=== PATIENT | male | born 1990 | race Caucasian/White ===

== ENCOUNTER 2022-08-12 17:40 | Emergency (ER) | payer BC, SELFPAY ==
[2022-08-12 17:56] VITALS: BP 157/89; PULSE 107; RESP 18; TEMP 36.8; O2SAT 97; BMI 43.0
--- NOTE | 2022-08-12 18:13 | EXP.UTC ---
Discharge Plan Disposition Patient Disposition: Home, Self-Care Condition: Good Prescriptions Prescriptions: New ibuprofen [IBU] 800 mg tablet 800 mg PO Q8HP PRN (Reason: Moderate Pain) Qty: 30 0RF ondansetron 4 mg Tablet,Disintegrating 4 mg PO Q8H PRN (Reason: Nausea) Qty: 20 0RF Referrals Follow up/Referrals: Provider,Referral, MD [Primary Care Provider] - See instructions Activity Restrictions/Add. Instructions Additional Instructions/Restrictions: Drink plenty of fluids. Take the medications as directed if needed. Follow up with your regular doctor. GO TO THE ER FOR ANY WORSENING SYMPTOMS Clinical Impressions Clinical Impression: Headache Stand Alone Forms Stand Alone Forms: Work/School Release Discharge ED Provider: Juan José Campbell [facility] General Stated complaint: FRANKLIN Neck Pain Mode of Arrival: Ambulatory Source of Information: Patient and Spouse Limitations: No Limitations Time Seen by Provider: 08/12/22 18:12 Description of Symptoms (Recalled from Triage Doc. by RN): PATIENT C/O HEADACHE AND NAUSEA THAT STARTED TODAY HEENT Symptoms (Recalled from RN notes): Yes Resp Symptoms (Recalled from RN notes): No Skin Symptoms (Recalled from RN notes): No MS Symptoms (Recalled from RN notes): No Functional Status (Recalled from RN notes): WNL History of Present Illness Provider Complaint: He states that since around 1300 today he has had a headache and nausea. Related Data Previous Rx's Medication Instructions Recorded ibuprofen 800 mg tablet (IBU) 800 mg PO Q8HP PRN Moderate Pain 08/12/22 #30 tabs ondansetron 4 mg disintegrating 4 mg PO Q8H PRN Nausea #20 tabs 08/12/22 tablet Allergies Allergy/AdvReac Type Severity Reaction Status Date / Time No Known Allergies Allergy Verified 08/12/22 17:58 Worker's Comp Is this a Worker's Comp case?: No [facility] Disclaimer: The information contained in this section may have been updated after the patient was seen, as this information can be updated by other users. Social History Smoking Status: Never smoker alcohol intake: never current occupational status: employed Travel in the last 8 weeks: None ROS Obtained: Yes All systems reviewed & no additional complaints except as documented Constitutional Constitutional: Denies chills and Denies fever(s) Eyes Eyes: Denies eye discharge ENT Ears, Nose, Mouth, and Throat: Denies dizziness, Denies otalgia and Denies sore throat Cardiovascular Cardiovascular: Denies chest pain Respiratory Respiratory: Denies shortness of breath, Denies chest congestion, Denies cough, Denies stridor and Denies wheezing Gastrointestinal Gastrointestingal: Denies nausea or vomiting Musculoskeletal Musculoskeletal: Reports system reviewed and no additional complaints, except as documented and Denies arthralgias Integumentary/Breasts Skin/Breast: Denies rash Neurologic Neurologic: Reports as per HPI, Denies dizziness and Denies paresthesias Allergic/Immunologic Allergic/Immunologic: Denies wheezing Physical Exam General General appearance: alert and in no apparent distress Head Head exam: atraumatic, normocephalic and normal inspection Eye Eye exam: Present normal appearance, PERRL and EOMI ENT ENT exam: Present normal exam, normal oropharynx, mucous membranes moist, TM's normal bilaterally and normal external ear exam Neck Neck exam: Present normal inspection, full ROM and trachea midline; Absent meningismus or lymphadenopathy Chest Chest inspection: Present normal inspection and symmetric chest wall rise; Absent tenderness Respiratory Respiratory exam: Present normal lung sounds bilaterally; Absent respiratory distress Cardiovascular Cardiovascular exam: Present regular rate and normal rhythm; Absent JVD Abdominal Exam Abdominal exam: Present soft and normal bowel sounds; Absent distention, tenderness or guarding Extremities Exam Extr
[2022-08-12 19:07] VITALS: BP 157/89; PULSE 107; RESP 18; TEMP 36.8; O2SAT 97
== END 2022-08-12 19:35 | disposition home or self-care (01) ==
PROVIDERS: Emergency Provider Nurse Practitioner Family
DX: R51.9 Headache, unspecified (principal); M54.2 Cervicalgia; R11.0 Nausea
CPT/HCPCS: J1885; J2550; 96372; 99212; 99214; G0463

== ENCOUNTER → 2022-09-03 07:07 | Outpatient (CLI) | payer BC, SELFPAY | PROVIDERS: Visit Provider Nurse Practitioner Family | DX: I10 Essential (primary) hypertension (principal); R73.03 Prediabetes; R53.83 Other fatigue; E66.01 Morbid (severe) obesity due to excess calories | CPT/HCPCS: 80053; 80061; 83036; 84402; 84403; 84443; 85025; 85651 ==

== ENCOUNTER → 2022-09-25 14:31 | Outpatient (CLI) | payer BC, SELFPAY ==
--- NOTE | 2022-10-21 13:30 | PC.NURSE ---
Spoke with the today and she states they are eaitng for his machine to be delivered. gave the ok for a trial of auto-pap
== END ==
PROVIDERS: PCP Nurse Practitioner Family; Visit Provider Nurse Practitioner Family
DX: G47.33 Obstructive sleep apnea (adult) (pediatric) (principal); R53.83 Other fatigue; R40.0 Somnolence; R06.83 Snoring
CPT/HCPCS: G0399

== ENCOUNTER → 2023-04-02 23:17 | Outpatient (CLI) | payer BC, SELFPAY ==
[2023-04-03 08:38] LABS: Testosterone,Total 283 ng/dL (264-916)
== END ==
PROVIDERS: PCP Family Medicine; Visit Provider Nurse Practitioner Family
DX: R79.89 Other specified abnormal findings of blood chemistry (principal)
CPT/HCPCS: 84403

== ENCOUNTER 2023-06-28 14:14 | Emergency (ER) | payer BC, SELFPAY ==
[2023-06-28] VITALS (7 sets, daily range): BP systolic 107–141; BP diastolic 54–84; PULSE 77–112; RESP 18–20; TEMP 37.1; O2SAT 95–99; BMI 45.6
--- NOTE | 2023-06-28 14:13 | ECG_ITS ---
APPROVED REPORT Exam: Resting ECG HR:108 bpm ECG Measurements Heart Rate 108 AXES MA 153 P -1 QRSd 93 QRS 22 QT 286 T 18 QTc 349 Conclusion SINUS TACHYCARDIA INDETERMINATE AXIS INCOMPLETE RIGHT BUNDLE BRANCH BLOCK [90+ ms QRS DURATION, TERMINAL R IN V1/V2, 40+ ms S IN I/aVL/V4/V5/V6] ABNORMAL RHYTHM ECG UNCONFIRMED REPORT Electronically signed by : Warner Santos MD 07/02/2023 14:50:25
--- NOTE | 2023-06-28 14:15 | XR_ITS ---
FINAL REPORT CLINICAL HISTORY: Chest pain acute, today FINDINGS: 2 views of the chest were obtained . The heart is normal in size. The mediastinum is within normal limits. The lungs are clear. There is no pneumothorax. Osseous structures are unremarkable. IMPRESSION: No acute cardiopulmonary process. Reviewed, Interpreted and Dictated by Karel Swift MD Transcribed by Madai Ibarra Authenticated and [facility]
[2023-06-28] MEDS: LACTATED RINGERS 1000ML 1,000 ML 999 ML IV (14:21)
[2023-06-28] MEDS: KETOROLAC 30MG/ML VIAL 15 MG IV (14:22)
[2023-06-28] MEDS: ONDANSETRON 4MG/2ML VIAL 4 MG IV (14:22)
[2023-06-28] MEDS: ACETAMINOPHEN 1,000MG/100ML VIAL 1000 MG IV (14:24)
[2023-06-28 14:26] LABS: Influenza A, PCR Not Detected (NotDetected); Influenza B, PCR Not Detected (NotDetected)
[2023-06-28 14:39] LABS: Alanine Aminotransferase 54 U/L (12-78); Albumin Level 4.5 g/dl (3.5-5.0); Albumin/Globulin Ratio 1.5 (1.1-1.8); Alkaline Phosphatase 40 U/L (38-126); Anion Gap 11.8 mEq/L (5-15); Aspartate Amino Transferase 48 U/L (17-59); Bilirubin,Total 0.8 mg/dl (0.2-1.3); Blood Urea Nitrogen 12 mg/dl (9-20); Calcium 8.5 mg/dl (8.4-10.2); Carbon Dioxide 29 mmol/L (22.0-30.0); Chloride 101 mmol/L (98-107); Creatinine Clearance Estimated 80 mL/min (50-200); Estimated Glomerular Filt Rate 64 ml/min (>60); GFR (African American) 78 ML/MIN (>60); Globulin 3.1 g/dL (1.3-3.2); Glucose 99 mg/dl (74-100); Potassium 3.8 mmoL/L (3.5-5.1); Sodium 138 mmol/L (136-145); Total Protein,Serum 7.6 g/dl (6.3-8.2)
[2023-06-28 14:44] LABS: D-Dimer 0.46 ug/mL (0.0-0.5)
[2023-06-28 14:48] LABS: Basophils % 0.4 % (0.1-2.0); Eosinophils # 0.2 K/mm3 (0.0-0.4); Eosinophils % 2.1 % (0.1-12.0); Hematocrit 51.7 % (42.0-52.0); Hemoglobin 17.3 g/dL (14.1-18.0); Lymphocytes # 0.8 K/mm3 (0.7-4.5); Lymphocytes % 9.5 % (10-50); Mean Corpuscular HGB Conc 33.5 g/dL (31.8-35.4); Mean Corpuscular Volume 89.6 fl (80-94); Monocytes # 0.6 K/mm3 (0.1-1.0); Monocytes % 7.8 % (1.7-9.3); Neutrophils # 6.5 K/mm3 (1.8-7.8); Neutrophils % 80.1 % (37.0-80.0); Platelet Count 180 K/mm3 (142-424); Red Blood Count 5.77 M/mm3 (4.60-6.20); Red Cell Distribution Width 13.3 % (11.5-17.5); White Blood Count 8.2 K/mm3 (4.8-10.8)
[2023-06-28 14:59] LABS: Coronavirus 19, PCR Detected (NotDetected)
--- NOTE | 2023-06-28 15:08 | HMH.EDCP ---
Discharge Plan Disposition Patient Disposition: Home, Self-Care Prescriptions Prescriptions: No Action fexofenadine [Estrella Allergy] 180 mg tablet 180 mg PO DAILY hydrochlorothiazide 12.5 mg capsule See Rx Instructions .ROUTE .COMPLEX Qty: 30 2RF Dose Instruction: TAKE 1 CAPSULE 1 TIME EACH DAY Rx Instructions: TAKE 1 CAPSULE 1 TIME EACH DAY testosterone cypionate [Depo-Testosterone] 200 mg/mL oil 200 mg IM Q2W Qty: 10 1RF Referrals Follow up/Referrals: Lamar Sotelo APRN [Primary Care Provider] - See instructions Activity Restrictions/Add. Instructions Additional Instructions/Restrictions: You were evaluated in the emergency department today. Please follow-up closely with your primary care provider as well as your neurosurgeon. Return to the emergency department for new or worsening symptoms. Clinical Impressions Clinical Impression: COVID-19, Chest pain Instructions Patient Instructions: DI for COVID-19 (Suspected or Confirmed ) Discharge ED Provider: Che Mendosa HPI <Che Mendosa DO - Last Filed: 06/28/23 16:30> General Chief Complaint: Chest Pain Stated Complaint: Chest pain Time Seen by Provider: 06/28/23 14:17 Mode of Arrival: Ambulatory Source of Information: Patient Limitations: No Limitations Description of Symptoms (Recalled from ER Triage Doc. by RN): pt presents to ED c/o convulsions and chest pain that started at arrival. pt states that he woke up and was experiencing nausea and shaking all over. pt reports congestion. History of Present Illness HPI narrative: This patient is a 33-year-old male with a history of obesity, hyperlipidemia, and FIDELINA presenting to the emergency department for evaluation with concern for shaking chills that he describes as convulsions. Patient reports that yesterday he was fine, however he woke up this morning with shaking chills and felt very weak. He states that his body is hurting all over. He notes that his convulsions consisted of all over body shaking. He was completely alert and oriented the entire time. He states he has no history of seizures. he also was very nauseated and having dry heaves, and he also notes that he has been very congested. Given this, he called his mom and his , who came home to check on him. They advised to come to the emergency department, so they drove him in. Upon arrival, the patient states he began to have severe left-sided chest pain that resolved spontaneously after a few seconds. He is not currently having any pain at this time and states that he is currently feeling better. Related Data Home Medications Medication Instructions Recorded Confirmed fexofenadine 180 mg tablet 180 mg PO DAILY 04/01/23 05/18/23 (Estrella Allergy) Previous Rx's Medication Instructions Recorded hydrochlorothiazide 12.5 mg capsule See Rx Instructions .Route 04/01/23 .COMPLEX #30 caps testosterone cypionate 200 mg/mL 200 mg IM Q2W #10 mL 04/01/23 intramuscular oil (Depo-Testosterone) Allergies Allergy/AdvReac Type Severity Reaction Status Date / Time No Known Allergies Allergy Verified 05/18/23 09:18 [facility] <Che Mendosa DO - Last Filed: 06/28/23 16:30> [facility] Disclaimer: The information contained in this section may have been updated after the patient was seen, as this information can be updated by other users. Medical History CSF otorrhea Hypertension Low testosterone Prediabetes Surgical History H/O adenoidectomy History of placement of ear tubes History of tonsillectomy Family History Grandfather Diabetes Stroke Sister Diabetes Father Diabetes Mother Hypertension Social History Smoking Status: Never smoker years smoked: 2 smoking status stop date: 06/07/2012 alcohol intake: current substance use type: denies use current occupational status: employed Travel in the last 8 weeks: Inside the [place] household members: spouse, children and other housing: house marital status: <Che Mendosa DO - Last Filed: 06/28/23 16:30> ROS Obtained: Yes All systems reviewed & no additional complaints except as documented Physical Exam <Che Mendosa DO - Last Filed: 06/28/23 16:30> General General appearance: alert, in no apparent distress and anxious Head Head exam: atraumatic and normocephalic Eye Eye exam: Present normal appearance, PERRL and EOMI ENT ENT exam: Present normal exam, normal oropharynx, mucous membranes moist and normal external ear exam Neck Neck exam: Present normal inspection, full ROM and trachea midline; Absent tenderness Chest Chest inspection: Present normal inspection and symmetric chest wall rise; Absent tenderness Respiratory Respiratory exam: Present normal lung sounds bilaterally; Absent respiratory distress, wheezes, stridor or accessory muscle use Cardiovascular Cardiovascular exam: Present normal rhythm and tachycardia Abdominal Exam Abdominal exam: Present soft; Absent distention, tenderness or guarding Extremities Exam Extremities exam: Present normal inspection, full ROM and normal capillary refill; Absent tenderness or edema Back Exam Back exam: Present normal inspection and full ROM; Absent tenderness Neurological Exam Neurological exam: Present alert, oriented X3, CN II-XII intact and normal gait; Absent motor sensory deficit Psychiatric Psychiatric exam: Present anxious Skin Skin exam: Present warm and dry HEART Score <Che Mendosa DO - Last Filed: 06/28/23 16:30> HEART Score HEART Score assessment performed?: No <Ran Post MD - Last Filed: 06/28/23 17:15> HEART Score History (anamnesis): Moderately suspicious ECG: Normal Age: <45 years Risk factors: No known risk factors Troponin: </= normal limit HEART Score: 1 Critical Care <DO Dagoberto Veloz Last Filed: 06/28/23 16:30> Critical Care Time Critical Care Time: No Medical Decision Making <DO Dagoberto Veloz Last Filed: 06/28/23 16:30> Medical Records Medical records reviewed: Yes I reviewed the patient's medical records. Flavio Inquiry Pt receiving controlled substance: No Vital Signs Vital Signs: 06/28/23 14:14 06/28/23 14:36 06/28/23 14:31 Temperature 98.7 F Temperature Source Oral Pulse Rate 78 100 H Pulse Rate [Right Radial] 112 H Respiratory Rate 20 18 Blood Pressure 122/69 Blood Pressure [Right Arm] 141/84 H Blood Pressure Mean [Right Arm] 103 Blood Pressure Source Blood Pressure Source [Right Arm] Automatic Cuff Blood Pressure Position Blood Pressure Position [Right Arm] Sitting 02 Sat by Pulse Oximetry 99 95 Oxygen Delivery Method Room Air Room Air 06/28/23 15:00 06/28/23 17:03 06/28/23 16:00 Temperature Temperature Source Pulse Rate 90 77 78 Pulse Rate [Right Radial] Respiratory Rate 20 18 18 Blood Pressure 118/54 L 107/64 L 124/71 Blood Pressure [Right Arm] Blood Pressure Mean [Right Arm] Blood Pressure Source Automatic Cuff Automatic Cuff Blood Pressure Source [Right Arm] Blood Pressure Position Sitting Sitting Blood Pressure Position [Right Arm] 02 Sat by Pulse Oximetry 97 99 97 Oxygen Delivery Method Room Air Room Air Lab Data Labs: Lab Results 06/28/23 14:16: WBC 8.2, RBC 5.77, Hgb 17.3, Hct 51.7, MCV 89.6, MCH 30.0, MCHC 33.5, RDW 13.3, Plt Count 180, MPV 8.0, Neut % (Auto) 80.1 H, Lymph % (Auto) 9.5 L, Dawson % (Auto) 7.8, Eos % (Auto) 2.1, Baso % (Auto) 0.4, Neut # (Auto) 6.5, Lymph # (Auto) 0.8, Dawson # (Auto) 0.6, Eos # (Auto) 0.2, Baso # (Auto) 0.0, D-Dimer 0.46, Sodium 138, Potassium 3.8, Chloride 101, Carbon Dioxide 29, Anion Gap 11.8, BUN 12, Creatinine 1.30 H, Estimated Creat Clear 80, Estimated GFR 64, Est GFR ( Amer) 78, Glucose 99, Calcium 8.5, Total Bilirubin 0.8, AST 48, ALT 54, Alkaline Phosphatase 40, Troponin I , Total Protein 7.6, Albumin 4.5, Globulin 3.1, Albumin/Globulin Ratio 1.5, TSH 2.37, Thyroxine (T4) 5.2 L 06/28/23 14:23: SARS-CoV-2 (PCR) Detected A, Influenza A Untype (PCR) Not detected, Influenza Type B (PCR) Not detected 06/28/23 14:16 06/28/23 14:16 Response Orders (Tests/Meds): ED MEDICATIONS Discontinued Medications Generic Name Dose Route Start Last Admin Trade Name Freq PRN Reason Stop Dose Admin Acetaminophen 1,000 mg 06/28/23 14:17 06/28/23 14:24 Acetaminophen 1,000mg/100ml Vial IV 06/28/23 14:18 1,000 mg ONCE ONE Administration Lactated Ringer's 1,000 mls @ 999 mls/hr 06/28/23 14:17 06/28/23 14:21 Lactated Ringer's 1000 Ml Bag IV 06/28/23 15:17 999 mls/hr .Q1H1M ONE Administration Ketorolac Tromethamine 15 mg 06/28/23 14:17 06/28/23 14:22 Ketorolac 30mg/Ml Vial IV 06/28/23 14:18 15 mg ONCE ONE Administration Ondansetron HCl 4 mg 06/28/23 14:17 06/28/23 14:22 Ondansetron 4mg/2ml Vial IV 06/28/23 14:18 4 mg ONCE ONE Administration ORDERS Category Date Time Status CT head/brain wo con Stat Cat Scan 06/28/23 15:47 Completed CXR 2 view (NOT portable) [XR chest 2V] Stat Exams 06/28/23 14:15 Completed Complete Blood Count Auto Diff Stat Lab 06/28/23 14:16 Completed Comprehensive Metabolic Panel Stat Lab 06/28/23 14:16 Completed D-Dimer Stat Lab 06/28/23 14:16 Completed Rapid PCR Covid and Flu A/B Stat Lab 06/28/23 14:23 Completed T4 (Thyroxine) Stat Lab 06/28/23 14:16 Completed Thyroid Stimulating Hormone Stat Lab 06/28/23 14:16 Completed Troponin I Stat Lab 06/28/23 14:16 Completed ECG Data Tracing #1: Attestation: I reviewed this ECG and interpreted as documented below: ECG Narrative: Sinus tachycardia with a ventricular rate of 108 beats per minute. No acute ST changes concerning for ischemia. Incomplete right bundle branch block noted. ECG initial impression date: 06/28/23 ECG initial impression time: 14:13 MDM Narrative Medical Decision Narrative: In summary, this patient is a 33-year-old male presenting to the Emergency Department for evaluation of shaking chills, body aches, nausea, congestion, and an episode of chest pain that happened upon arrival. Differential diagnoses considered include but are not limited to viral syndrome, pneumonia, ACS, PE, sepsis, seizure. Ruling out the most morbid conditions drove assessment. It should be noted patient's history includes obesity which is not at goal therapy. This complicates all aspects of care by increasing patient's risk for morbidity. On exam, the patient is well-appearing and is neurologically intact. Based on his symptoms of chills,rigors, body aches, nausea, and congestion, feel he likely has a viral syndrome. Workup included lab evaluation, chest x-ray, and EKG. I independently interpreted x-ray prior to the radiologist read and noted no focal consolidation or pneumonia. Please see their read for final interpretation. Labs were obtained that demonstrated no acutely concerning abnormalities. Troponin is pending. Patient did test positive for COVID-19, which I feel is the cause of his issues. Of note, he states that he is concerned that he may have a CSF leak, as he has a history of CSF leak status post repair 6 months ago at . He states that given his congestion he is worried that the repair may have failed. CT scan of the head without contrast was ordered to evaluate for possible slit ventricles. I signed out to oncoming provider, Dr. Post. HEART SCORE <Ran Post MD - Last Filed: 06/28/23 17:15> Vital Signs Vital Signs: 06/28/23 14:14 06/28/23 14:36 06/28/23 14:31 Temperature 98.7 F Temperature Source Oral Pulse Rate 78 100 H Pulse Rate [Right Radial] 112 H Respiratory Rate 20 18 Blood Pressure 122/69 Blood Pressure [Right Arm] 141/84 H Blood Pressure Mean [Right Arm] 103 Blood Pressure Source Blood Pressure Source [Right Arm] Automatic Cuff Blood Pressure Position Blood Pressure Position [Right Arm] Sitting 02 Sat by Pulse Oximetry 99 95 Oxygen Delivery Method Room Air Room Air 06/28/23 15:00 06/28/23 17:03 06/28/23 16:00 Temperature Temperature Source Pulse Rate 90 77 78 Pulse Rate [Right Radial] Respiratory Rate 20 18 18 Blood Pressure 118/54 L 107/64 L 124/71 Blood Pressure [Right Arm] Blood Pressure Mean [Right Arm] Blood Pressure Source Automatic Cuff Automatic Cuff Blood Pressure Source [Right Arm] Blood Pressure Position Sitting Sitting Blood Pressure Position [Right Arm] 02 Sat by Pulse Oximetry 97 99 97 Oxygen Delivery Method Room Air Room Air Lab Data Labs: Lab Results 06/28/23 14:16: WBC 8.2, RBC 5.77, Hgb 17.3, Hct 51.7, MCV 89.6, MCH 30.0, MCHC 33.5, RDW 13.3, Plt Count 180, MPV 8.0, Neut % (Auto) 80.1 H, Lymph % (Auto) 9.5 L, Dawson % (Auto) 7.8, Eos % (Auto) 2.1, Baso % (Auto) 0.4, Neut # (Auto) 6.5, Lymph # (Auto) 0.8, Dawson # (Auto) 0.6, Eos # (Auto) 0.2, Baso # (Auto) 0.0, D-Dimer 0.46, Sodium 138, Potassium 3.8, Chloride 101, Carbon Dioxide 29, Anion Gap 11.8, BUN 12, Creatinine 1.30 H, Estimated Creat Clear 80, Estimated GFR 64, Est GFR ( Amer) 78, Glucose 99, Calcium 8.5, Total Bilirubin 0.8, AST 48, ALT 54, Alkaline Phosphatase 40, Troponin I , Total Protein 7.6, Albumin 4.5, Globulin 3.1, Albumin/Globulin Ratio 1.5, TSH 2.37, Thyroxine (T4) 5.2 L 06/28/23 14:23: SARS-CoV-2 (PCR) Detected A, Influenza A Untype (PCR) Not detected, Influenza Type B (PCR) Not detected Response Orders (Tests/Meds): ED MEDICATIONS Discontinued Medications Generic Name Dose Route Start Last Admin Trade Name Freq PRN Reason Stop Dose Admin Acetaminophen 1,000 mg 06/28/23 14:17 06/28/23 14:24 Acetaminophen 1,000mg/100ml Vial IV 06/28/23 14:18 1,000 mg ONCE ONE Administration Lactated Ringer's 1,000 mls @ 999 mls/hr 06/28/23 14:17 06/28/23 14:21 Lactated Ringer's 1000 Ml Bag IV 06/28/23 15:17 999 mls/hr .Q1H1M ONE Administration Ketorolac Tromethamine 15 mg 06/28/23 14:17 06/28/23 14:22 Ketorolac 30mg/Ml Vial IV 06/28/23 14:18 15 mg ONCE ONE Administration Ondansetron HCl 4 mg 06/28/23 14:17 06/28/23 14:22 Ondansetron 4mg/2ml Vial IV 06/28/23 14:18 4 mg ONCE ONE Administration ORDERS Category Date Time Status CT head/brain wo con Stat Cat Scan 06/28/23 15:47 Completed CXR 2 view (NOT portable) [XR chest 2V] Stat Exams 06/28/23 14:15 Completed Complete Blood Count Auto Diff Stat Lab 06/28/23 14:16 Completed Comprehensive Metabolic Panel Stat Lab 06/28/23 14:16 Completed D-Dimer Stat Lab 06/28/23 14:16 Completed Rapid PCR Covid and Flu A/B Stat Lab 06/28/23 14:23 Completed T4 (Thyroxine) Stat Lab 06/28/23 14:16 Completed Thyroid Stimulating Hormone Stat Lab 06/28/23 14:16 Completed Troponin I Stat Lab 06/28/23 14:16 Completed MDM Narrative Medical Decision Narrative: In summary, this patient is a 33-year-old male presenting to the Emergency Department for evaluation of shaking chills, body aches, nausea, congestion, and an episode of chest pain that happened upon arrival. Differential diagnoses considered include but are not limited to viral syndrome, pneumonia, ACS, PE, sepsis, seizure. Ruling out the most morbid conditions drove assessment. It should be noted patient's history includes obesity which is not at goal therapy. This complicates all aspects of care by increasing patient's risk for morbidity. On exam, the patient is well-appearing and is neurologically intact. Based on his symptoms of chills,rigors, body aches, nausea, and congestion, feel he likely has a viral syndrome. Workup included lab evaluation, chest x-ray, and EKG. I independently interpreted x-ray prior to the radiologist read and noted no focal consolidation or pneumonia. Please see their read for final interpretation. Labs were obtained that demonstrated no acutely concerning abnormalities. Troponin is pending. Patient did test positive for COVID-19, which I feel is the cause of his issues. Of note, he states that he is concerned that he may have a CSF leak, as he has a history of CSF leak status post repair 6 months ago at . He states that given his congestion he is worried that the repair may have failed. CT scan of the head without contrast was ordered to evaluate for possible slit ventricles. I signed out to oncoming provider, Dr. Post. Ran Post: Upon assumption of care patient was hemodynamically stable. Workup reviewed by me and is nonactionable, CT imaging shows opacification of mastoid air cells, prior mastoidectomy, patient clinically does not have mastoiditis therefore no concerns from that standpoint. No slit ventricles to suggest failed CSF leak repair. Patient has COVID which explains his symptoms. Given this patient is appropriate for discharge at this time.
--- NOTE | 2023-06-28 15:47 | CT_ITS ---
FINAL REPORT TECHNIQUE: Axial CT images were performed through the head. Coronal and sagittal reformatted images were submitted. This study was performed with techniques to keep radiation doses as low as reasonably achievable (ALARA). Individualized dose reduction techniques using automated exposure control or adjustment of mA and/or kV according to the patient's size were employed. CLINICAL HISTORY: headache, h/o CSF leak repair COMPARISON: None FINDINGS: The ventricles are normal in size. There is no evidence of hemorrhage. There is no mass or edema identified. There is no abnormal extra-axial fluid seen. The patient has undergone a prior right mastoidectomy. There is opacification of the left mastoid air cells, as well as bilateral soft tissue thickening within the middle ear cavities. There is mild mucoperiosteal thickening in several ethmoid air cells. IMPRESSION: No acute intracranial process. Prior right mastoidectomy. There is opacification of the left mastoid air cells, as well as soft tissue thickening within the middle ear cavities bilaterally. Reviewed, Interpreted and Dictated by Karel Swift MD Transcribed by Lynne Mccain Authenticated and [facility]
--- NOTE | 2023-06-28 15:53 | PC.NURSE ---
pt updated on POC and wait time.
--- NOTE | 2023-06-28 16:13 | PC.NURSE ---
pt returned from radiology
--- NOTE | 2023-06-28 16:13 | PC.NURSE ---
Pt returned to room from CT
[2023-06-28 16:39] LABS: T4 (Thyroxine) 5.2 ug/dl (5.53-11.0)
[2023-06-28 16:40] LABS: Thyroid Stimulating Hormone 2.37 uIU/mL (0.465-4.68)
== END 2023-06-28 17:28 | disposition home or self-care (01) ==
PROVIDERS: Emergency Provider Emergency Medicine; PCP Nurse Practitioner Family
DX: U07.1 COVID-19 (principal); R07.9 Chest pain, unspecified; R56.9 Unspecified convulsions; R11.0 Nausea; E78.5 Hyperlipidemia, unspecified; G47.33 Obstructive sleep apnea (adult) (pediatric); I10 Essential (primary) hypertension; R73.03 Prediabetes; R00.0 Tachycardia, unspecified; I45.19 Other right bundle-branch block
CPT/HCPCS: 70450; 71046; 80053; 84436; 84443; 84484; 85025; 85378; 87636; 93005; 96361; 96374; 96375; 99285; J0131; J2405

== ENCOUNTER 2023-07-08 23:09 | Outpatient (CLI) | payer BC, SELFPAY ==
[2023-07-08 17:09] LABS: Basophils # 0.1 K/mm3 (0-0.2); Basophils % 1.3 % (0.1-2.0); Eosinophils # 0.1 K/mm3 (0.0-0.4); Eosinophils % 2.3 % (0.1-12.0); Hematocrit 50.3 % (42.0-52.0); Hemoglobin 16.9 g/dL (14.1-18.0); Lymphocytes # 1.9 K/mm3 (0.7-4.5); Lymphocytes % 31.2 % (10-50); Mean Corpuscular HGB Conc 33.6 g/dL (31.8-35.4); Mean Corpuscular Hemoglobin 29.8 pg (27.0-31.2); Mean Corpuscular Volume 88.7 fl (80-94); Mean Platelet Volume 10.4 fl (7.4-10.4); Monocytes # 0.6 K/mm3 (0.1-1.0); Neutrophils # 3.3 K/mm3 (1.8-7.8); Neutrophils % 55.2 % (37.0-80.0); Platelet Count 286 K/mm3 (142-424); Red Blood Count 5.67 M/mm3 (4.60-6.20); Red Cell Distribution Width 13.1 % (11.5-17.5); White Blood Count 6.1 K/mm3 (4.8-10.8)
[2023-07-08 17:40] LABS: Alanine Aminotransferase 48 U/L (12-78); Albumin Level 4.7 g/dl (3.5-5.0); Albumin/Globulin Ratio 1.6 (1.1-1.8); Alkaline Phosphatase 40 U/L (38-126); Anion Gap 13.2 mEq/L (5-15); Aspartate Amino Transferase 42 U/L (17-59); Bilirubin,Total 0.8 mg/dl (0.2-1.3); Blood Urea Nitrogen 18 mg/dl (9-20); Calcium 9.7 mg/dl (8.4-10.2); Carbon Dioxide 27 mmol/L (22.0-30.0); Chloride 104 mmol/L (98-107); Estimated Glomerular Filt Rate 78 ml/min (>60); GFR (African American) 94 ML/MIN (>60); Globulin 2.9 g/dL (1.3-3.2); Glucose 90 mg/dl (74-100); Potassium 4.2 mmoL/L (3.5-5.1); Sodium 140 mmol/L (136-145); Total Protein,Serum 7.6 g/dl (6.3-8.2)
[2023-07-10 12:56] LABS: Testosterone,Total 102 ng/dL (264-916)
== END 2023-07-08 23:59 ==
LOC: LAB.DROPOF 23:09
PROVIDERS: PCP Nurse Practitioner Family; Visit Provider Nurse Practitioner Family
DX: I10 Essential (primary) hypertension (principal); R79.89 Other specified abnormal findings of blood chemistry
CPT/HCPCS: 80053; 84403; 85025

== ENCOUNTER 2023-09-21 16:46 | Outpatient (CLI) | payer BC, SELFPAY ==
[2023-09-21 17:44] LABS: Basophils # 0.1 K/mm3 (0-0.2); Basophils % 1.3 % (0.1-2.0); Eosinophils # 0.2 K/mm3 (0.0-0.4); Eosinophils % 2.4 % (0.1-12.0); Hematocrit 55.3 % (42.0-52.0); Hemoglobin 17.6 g/dL (14.1-18.0); Lymphocytes # 2.1 K/mm3 (0.7-4.5); Lymphocytes % 29.3 % (10-50); Mean Corpuscular HGB Conc 31.8 g/dL (31.8-35.4); Mean Corpuscular Hemoglobin 29.6 pg (27.0-31.2); Mean Platelet Volume 8.7 fl (7.4-10.4); Monocytes # 0.7 K/mm3 (0.1-1.0); Monocytes % 9.3 % (1.7-9.3); Neutrophils # 4.2 K/mm3 (1.8-7.8); Neutrophils % 57.7 % (37.0-80.0); Platelet Count 226 K/mm3 (142-424); Red Blood Count 5.95 M/mm3 (4.60-6.20); Red Cell Distribution Width 13.7 % (11.5-17.5); White Blood Count 7.3 K/mm3 (4.8-10.8)
[2023-09-21 18:40] LABS: Hemoglobin A1C 5.1 % (4.0-6.0)
[2023-09-21 20:18] LABS: Alanine Aminotransferase 58 U/L (12-78); Albumin Level 4.5 g/dl (3.5-5.0); Albumin/Globulin Ratio 1.7 (1.1-1.8); Alkaline Phosphatase 44 U/L (38-126); Anion Gap 11.4 mEq/L (5-15); Aspartate Amino Transferase 51 U/L (17-59); Bilirubin,Total 0.9 mg/dl (0.2-1.3); Blood Urea Nitrogen 14 mg/dl (9-20); Calcium 9.7 mg/dl (8.4-10.2); Carbon Dioxide 33 mmol/L (22.0-30.0); Chloride 101 mmol/L (98-107); Chol/HDL Ratio 5.9 (1-3.5); Cholesterol 177 mg/dl (140-200); Estimated Glomerular Filt Rate 64 ml/min (>60); GFR (African American) 78 ML/MIN (>60); Globulin 2.7 g/dL (1.3-3.2); Glucose 92 mg/dl (74-100); HDL Cholesterol 30 mg/dl (40-60); Potassium 4.4 mmoL/L (3.5-5.1); Sodium 141 mmol/L (136-145); Total Protein,Serum 7.2 g/dl (6.3-8.2); Triglycerides 166 mg/dl (30-150); VLDL Cholesterol 33 mg/dL (0-40)
[2023-09-21 20:29] LABS: Direct LDL Cholesterol 94.33 mg/dL (100-129)
[2023-09-21 20:50] LABS: Thyroid Stimulating Hormone 3.55 uIU/mL (0.465-4.68)
[2023-09-23 13:29] LABS: Testosterone,Total 1174 ng/dL (264-916)
== END 2023-09-21 23:59 | disposition home or self-care (01) ==
LOC: LAB.DROPOF 16:46
PROVIDERS: PCP Nurse Practitioner Family; Visit Provider Nurse Practitioner Family
DX: R79.89 Other specified abnormal findings of blood chemistry (principal); I10 Essential (primary) hypertension; E78.5 Hyperlipidemia, unspecified
CPT/HCPCS: 80053; 80061; 83036; 84403; 84443; 85025

== ENCOUNTER 2023-10-07 07:42 | Outpatient (CLI) | payer BC, SELFPAY | END 2023-10-07 23:59 | disposition home or self-care (01) | LOC: LAB.DROPOF 07:42 | PROVIDERS: PCP Nurse Practitioner Family; Visit Provider Nurse Practitioner Family | DX: R79.89 Other specified abnormal findings of blood chemistry (principal); R86.1 Abnormal level of hormones in specimens from male genital organs | CPT/HCPCS: 84403 ==

== ENCOUNTER 2024-01-20 09:49 | Outpatient (CLI) | payer BC, SELFPAY | END 2024-01-20 23:59 | disposition home or self-care (01) | LOC: RT 09:49 | PROVIDERS: PCP Nurse Practitioner Family; Visit Provider Specialist | DX: G47.33 Obstructive sleep apnea (adult) (pediatric) (principal) | CPT/HCPCS: 94762 ==